=== PATIENT | male | born 1995 | race Caucasian/White ===

== ENCOUNTER 2021-09-10 05:58 | Inpatient (IN) ==
[2021-09-10] MEDS ORDERED: SODIUM CHLORIDE 0.9% 1,000 ML IV STA (06:05)
[2021-09-10] MEDS ORDERED: ONDANSETRON 4 MG/2 ML VIAL IV STA (06:23)
[2021-09-10] MEDS ORDERED: HYDROmorphone 2 MG/1 ML VIAL IV STA (06:23)
[2021-09-10] MEDS ORDERED: GLUCAGON 1 MG VIAL IM PRN (07:27)
[2021-09-10] MEDS ORDERED: ONDANSETRON 4 MG/2 ML VIAL IV PRN (07:27)
[2021-09-10] MEDS ORDERED: DEXTROSE 50% 25 GM/50 ML VIAL IV PRN (07:27)
[2021-09-10] MEDS ORDERED: hydrALAZINE 20 MG/1 ML VIAL IV PRN (07:27)
[2021-09-10] MEDS ORDERED: ACETAMINOPHEN 325 MG TABLET PO PRN (07:27)
[2021-09-10] MEDS ORDERED: LACTATED RINGERS 1,000 ML IV SCH (07:30)
[2021-09-10] MEDS: PANTOPRAZOLE 40 MG TABLET PO SCH (09:27)
[2021-09-10 10:21] LABS: Basophils % 0.2 % (0.0-0.8); Eosinophils # 0.1 10*3/uL (0.0-0.87); Eosinophils % 0.8 % (0.00-10.9); Hematocrit 36.4 VOL% (42.0-52.0); Hemoglobin 12.4 GM/DL (14.0-18.0); Immature Granulocytes % 0.2 %; Immature Granulocytes Absolute 0.02 #; Lymphocytes # 2.4 10*3/uL (1.4-4.0); Lymphocytes % 26.4 % (21.2-54.2); Mean Corpuscular HGB Conc 34.1 GM/DL (32-36); Mean Platelet Volume 9.6 FL (9.6-12.0); Monocytes % 6.6 % (1.7-12.7); Neutrophils % 65.8 % (38.7-73.9); Platelet Count 271 T/CUMM (130-400); Red Blood Count 4.28 MC/CUMM (3.8-5.5); Red Cell Distribution Width 13.2 % (9.3-17.3)
[2021-09-10 10:40] LABS: Albumin 3.2 G/DL (3.4-5.0); Bilirubin,Total 2.1 MG/DL (0.20-1.00); Potassium 3.6 MMOL/L (3.5-5.1); Risk Ratio 2.7; Total Protein 6.3 G/DL (6.4-8.2)
[2021-09-10] MEDS ORDERED: ENOXAPARIN 40 MG/0.4 ML SYRINGE SUBCUT SCH (11:00)
[2021-09-10] MEDS ORDERED: INSULIN LISPRO 100 UNIT/ML SUBCUT SCH (12:00)
[2021-09-10] MEDS ORDERED: HYDROmorphone 2 MG/1 ML VIAL IV PRN ×2 (13:50)
[2021-09-10] MEDS ORDERED: KETOROLAC 30 MG/1 ML VIAL IV PRN (13:50)
[2021-09-10] MEDS: LACTATED RINGERS 1,000 ML IV SCH ×2 (15:00→22:47)
[2021-09-10] MEDS: BISACODYL 5 MG TABLET PO SCH (15:46)
[2021-09-10] MEDS: INSULIN LISPRO 100 UNIT/ML SUBCUT SCH (22:47)
[2021-09-11] MEDS: LACTATED RINGERS 1,000 ML IV SCH ×4 (04:45→22:20)
[2021-09-11 06:47] LABS: Basophils % 0.5 % (0.0-0.8); Eosinophils # 0.1 10*3/uL (0.0-0.87); Eosinophils % 2.3 % (0.00-10.9); Hemoglobin 12.7 GM/DL (14.0-18.0); Immature Granulocytes % 0.2 %; Immature Granulocytes Absolute 0.01 #; Lymphocytes # 2.4 10*3/uL (1.4-4.0); Lymphocytes % 38.1 % (21.2-54.2); Mean Corpuscular HGB Conc 34.3 GM/DL (32-36); Mean Corpuscular Volume 87.3 FL (87-102); Mean Platelet Volume 10.1 FL (9.6-12.0); Monocytes % 6.4 % (1.7-12.7); Neutrophils % 52.5 % (38.7-73.9); Platelet Count 248 T/CUMM (130-400); Red Blood Count 4.24 MC/CUMM (3.8-5.5); Red Cell Distribution Width 13.1 % (9.3-17.3); White Blood Count 6.2 T/CUMM (4-12)
[2021-09-11 07:16] LABS: Albumin 3.2 G/DL (3.4-5.0); Bilirubin,Total 2.8 MG/DL (0.20-1.00); Calcium 9.2 MG/DL (8.5-10.1); Osmolality,Calculated 279.1 MOS/KG (273-304); Potassium 3.6 MMOL/L (3.5-5.1); Total Protein 6.3 G/DL (6.4-8.2)
[2021-09-11] MEDS ORDERED: INDOCYANINE GREEN 25 MG VIAL IV ONE (07:25)
[2021-09-11] MEDS: INSULIN LISPRO 100 UNIT/ML SUBCUT SCH ×2 (09:45→13:16)
[2021-09-11] MEDS: BISACODYL 5 MG TABLET PO SCH (10:42)
[2021-09-11] MEDS: PANTOPRAZOLE 40 MG TABLET PO SCH (10:42)
[2021-09-11] MEDS ORDERED: BUPIVACAINE MPF 0.25% 30 ML VIAL ONE (12:12)
[2021-09-11] MEDS ORDERED: LIDOCAINE 1%/EPI INJ 20 ML VIAL ONE (12:13)
[2021-09-11] MEDS ORDERED: TISSUE ADHESIVE 1 EACH APPLICATOR TOP ONE (12:13)
[2021-09-11] MEDS ORDERED: ACETAMINOPHEN INJ 1,000 MG/100 ML VIAL IV ONE (13:02)
[2021-09-11] MEDS ORDERED: DEXAMETHASONE 4 MG/1 ML VIAL ONE ×2 (13:02)
[2021-09-11] MEDS ORDERED: ROCURONIUM 50 MG/5 ML VIAL IV ONE (13:02)
[2021-09-11] MEDS ORDERED: propofoL 200 MG/20 ML VIAL IV ONE (13:02)
[2021-09-11] MEDS ORDERED: LIDOCAINE 2% 5 ML VIAL ONE (13:02)
[2021-09-11] MEDS ORDERED: ONDANSETRON 4 MG/2 ML VIAL ONE (13:02)
[2021-09-11] MEDS ORDERED: fentaNYL 100 MCG/2 ML VIAL ONE ×2 (13:04→13:27)
[2021-09-11] MEDS ORDERED: MIDAZOLAM 2 MG/2 ML VIAL ONE (13:04)
[2021-09-11] MEDS ORDERED: LACTATED RINGERS 1,000 ML IV ONE (13:06)
[2021-09-11] MEDS ORDERED: SUGAMMADEX 200 MG/2 ML VIAL IV ONE (13:19)
[2021-09-11] MEDS ORDERED: SEVOFLURANE 1 UNIT/15 MINUTE INH ONE (13:44)
[2021-09-12] MEDS: LACTATED RINGERS 1,000 ML IV SCH ×2 (03:20→05:20)
[2021-09-12 05:57] LABS: Basophils % 0.1 % (0.0-0.8); Eosinophils % 0.1 % (0.00-10.9); Hematocrit 37.6 VOL% (42.0-52.0); Hemoglobin 13.2 GM/DL (14.0-18.0); Immature Granulocytes % 0.3 %; Immature Granulocytes Absolute 0.03 #; Lymphocytes # 1.7 10*3/uL (1.4-4.0); Lymphocytes % 19.6 % (21.2-54.2); Mean Corpuscular HGB Conc 35.1 GM/DL (32-36); Mean Corpuscular Volume 83.7 FL (87-102); Mean Platelet Volume 9.6 FL (9.6-12.0); Monocytes % 6.6 % (1.7-12.7); Neutrophils % 73.3 % (38.7-73.9); Platelet Count 282 T/CUMM (130-400); Red Blood Count 4.49 MC/CUMM (3.8-5.5); Red Cell Distribution Width 12.7 % (9.3-17.3); White Blood Count 8.6 T/CUMM (4-12)
[2021-09-12 06:18] LABS: Albumin 3.5 G/DL (3.4-5.0); Bilirubin,Total 2.2 MG/DL (0.20-1.00); Calcium 9.2 MG/DL (8.5-10.1); Osmolality,Calculated 273.7 MOS/KG (273-304); Potassium 3.5 MMOL/L (3.5-5.1); Total Protein 6.7 G/DL (6.4-8.2)
[2021-09-12 07:46] VITALS: BP 116/61
[2021-09-12] MEDS: PANTOPRAZOLE 40 MG TABLET PO SCH (09:29)
[2021-09-12] MEDS: BISACODYL 5 MG TABLET PO SCH (09:29)
== END 2021-09-12 11:03 | disposition home or self-care (01) | DRG 419 ==
LOC: EDBD → EDUNIT# → N.ED 05:58 → SUATTDRO 07:27 → N.EDINP 07:27 → N.5E 16:48
PROVIDERS: ADMIT Internal Medicine; ATTEND Internal Medicine